=== PATIENT | female | born 1955 | race Caucasian/White ===

== ENCOUNTER → 2016-10-09 | Outpatient (CLI) | payer MEDICAID ==
[~2016-10-09] MED LIST: ALENDRONATE SOD70 MG PO; ATENOLOL50 MG PO; ATIVAN1 MG PO; BUPROPION HYDR150 M3 PO; CLARITIN 10MG T10 MG PO; FLUTICASONE 50M16 GM; HABITROL21 MG/24 H TD; LISINOPRIL 10MG10 MG PO; LISINOPRIL 5MG T5 MG PO; LORTAB 5/500 501 TAB PO; MACROBID100 M3 PO; MOTRIN 600MG.600 MG PO; NEXIUM40 MG/PACK PO; OMNICEF 300 MG300 MG PO; PRAVACHOL40 MG PO; PREDNISONE 20MG20 MG PO; SYMBICORT1 AE1 IH; VICODIN 5/500 T1 TAB PO; VITAMIN D50000 IU PO; VOLTAREN75 MG PO; ZITHROMAX 250M250 MG PO
--- NOTE | 2016-10-14 06:35 | RADIOLOGY REPORT PS360 ---
EXAM: CT LUNG LOW DOSE WO CONTRAST COMPARISON: 03-08 HISTORY: 61-year-old female with greater than 30 pack-year smoking history asymptomatic ORDERING PHYSICIAN: DAVIS CASTLE MD PATIENT AGE: 61 years TECHNIQUE: The exam was performed on a GE Light Speed [address] scanner using 2.95 mGy CTDI. A low dose helical CT CHEST was performed on a multi-detector scanner The LDCT was performed in a facility that meets the criteria for the screening program. Data regarding this exam was submitted to [employer] which is an approved registry. The order for this exam indicates that it came as a result of a lung cancer screening counseling shard decision-making visit that included all the elements required of such a visit including smoking cessation. The radiologist interpreting this exam meets the [facility] criteria for the LDCT lung cancer screening program. The exam is reported using the Lung-RADS classification scale and reported to the [employer] registry. NOTE: THIS STUDY WAS PERFORMED FOR THE SPECIFIC PURPOSES OF LUNG CANCER SCREENING AND IS NOT AN ALTERNATIVE TO DIAGNOSTIC CHEST CT RADIATION DOSE: CTDI vol(CT dose Index-volume) = 2.95mG DLP (Dose Length Product) = 113.5 to mGcm FINDINGS: No suspicious nodule detected. No effusions or infiltrates or mediastinal masses. Scattered small nodes are present in the mediastinum. There is mild coarsening of bronchovascular markings and bronchial thickening with hyperinflation consistent with obstructive chronic bronchitis Other findings: Coronary artery calcification consistent with coronary artery disease. IMPRESSION: 1. Lung RADS Category: 1 negative 2. Obstructive chronic bronchitis 3. Coronary artery disease RECOMMENDATIONS: 12 month LDCT screening
== END ==
LOC: RAD 10-02 14:00
DX: Z87.891 Personal history of nicotine dependence (principal); Z12.2 Encounter for screening for malignant neoplasm of respiratory organs; Z71.6 Tobacco abuse counseling
CPT/HCPCS: G0297

== ENCOUNTER → 2017-01-11 | Outpatient (CLI) | payer MEDICAID ==
[2017-01-11 09:32] LABS: HEMOGLOBIN 14.9 g/dL (12.2-16.2); LYMPH # 5.2 K/mm3 (0.7-4.5); LYMPH % 42.1 % (10-50.0)
[2017-01-11 11:16] LABS: BUN 11 mg/dL (7-18)
[2017-01-11 11:24] LABS: GFR (ESTIMATED) 85 ML/MIN (59-)
== END ==
LOC: LAB 09:03
PROVIDERS: Internal Medicine Adolescent Medicine
DX: J44.1 Chronic obstructive pulmonary disease with (acute) exacerbation (principal); E78.5 Hyperlipidemia, unspecified